=== PATIENT | male | born 1975 | race Caucasian/White ===

== ENCOUNTER 2022-09-18 11:10 | Inpatient (IN) | payer MEDICARE, OTHER ==
[2022-09-18] MEDS ORDERED: MAGNESIUM HYDROXIDE 2,400 MG/30 ML CUP PO PRN (12:43)
[2022-09-18] MEDS ORDERED: LORazepam 1 MG TAB PO PRN (12:43)
[2022-09-18] MEDS ORDERED: LORazepam 2 MG/ML INJ IM PRN (12:43)
[2022-09-18] MEDS ORDERED: MAG HYDROX/AL HYDROX/SIMETH 30 ML CUP PO PRN (12:43)
[2022-09-18] MEDS ORDERED: ACETAMINOPHEN TAB 325 MG TAB PO PRN (12:43)
[2022-09-18] MEDS ORDERED: chlorproMAZINE 25 MG/ML 2 ML AMP IM PRN (13:04)
[2022-09-18] MEDS ORDERED: chlorproMAZINE 25 MG TAB PO PRN (13:04)
[2022-09-18] MEDS ORDERED: OLANZapine 10 MG VIAL IM PRN (14:21)
[2022-09-18] MEDS ORDERED: OLANZapine 5 MG TAB PO PRN (14:21)
[2022-09-18] MEDS: NICOTINE 14MG/24HR PATCH TRANSDERM SCH (14:28)
[2022-09-18] MEDS ORDERED: hydrOXYzine HCL 50 MG/ML 1 ML VIAL IM PRN (14:29)
[2022-09-18] MEDS ORDERED: ASPIRIN 325 MG TAB PO PRN (14:31)
[2022-09-18] MEDS ORDERED: VITAMIN B50 COMPLEX PO SCH (15:00)
[2022-09-18] MEDS: DOCUSATE 100 MG CAP PO SCH (15:39)
[2022-09-18] MEDS: MINOCYCLINE 50 MG CAP PO SCH (16:17)
[2022-09-18] MEDS: FINASTERIDE 5 MG TAB PO SCH (16:17)
[2022-09-18] MEDS: MELATONIN 1 MG TAB PO SCH (21:41)
[2022-09-18] MEDS: QUEtiapine 25 MG TAB PO SCH (21:41)
--- NOTE | 2022-09-18 23:46 | P.CONS ---
History of Present Illness - Reason for Consult Consult date: 09/18/22 - History of Present Illness The patient is a 47-year-old transgender female who was transferred from [facility] with the patient had been admitted to the hospital for psychosis. The patient was subsequently transferred to [facility] unit where she was seen and evaluated. The patient was paranoid and concerned that throughout the last 2 decades, multiple people have been trying to poison her. She reports having "hits" where someone will poison the food that she would buy from the supermarket, which would cause her to become violently ill. She does not know who it is the trying to do this but states that it has happened several times. She does not believe that these are dietary ALLERGIES or intolerances. At time of interview, she reports that her symptoms have been throbbing for the past several weeks. She also reports that her intestines feel numb and she denied tobacco, alcohol, or substance use. She denied extremity chest discomfort or shortness of breath. Denied nausea, vomiting, abdominal pain, diarrhea. She reports using a walker to ambulate after suffering multiple right knee injuries while playing football. Review of systems: Pertinent positives and negatives as discussed in HPI, a complete review of systems was performed and all other systems are negative. Physical examination: General: non toxic, no distress, appears at stated age, normal weight Derm: no unusual rashes/lesions, no unusual ecchymoses, warm, dry Head: atraumatic, normocephalic, symmetric Eyes: EOMI, no lid lag, anicteric sclera ENT: Nose and ears atraumatic, no thrush, no pharyngeal erythema Neck: trachea midline, supple Mouth: no lip lesion, mucus membranes moist Cardiovascular: S1S2 reg, no murmur, no edema Lungs: CTA bilateral, no rhonchi, no rales , no accessory muscle use Abdominal: soft, nontender to palpation, no guarding Ext: no gross muscle atrophy, no contractures, Neuro: No gross focal neuro deficits noted Psych: Alert, oriented, paranoid affect Assessment: Psychosis Aspirin prescribed Plan: Defer management to primary psychiatry service Unknown why the patient is taking aspirin Patient is insisting that all her home medications be renewed no matter what and she reports she is following with multiple providers who are managing these long-term. Thank you for allowing us to participate in the care of this patient. We will follow peripherally. Do not hesitate to contact us with questions. Someone can be reached from the [facility] hospitalist group at all hours of the day at [phone]. Past Medical History Past Medical History: Fibromyalgia, Musculoskeletal Disorder, Osteoarthritis (OA) Additional Past Medical History / Comment(s): Damaged right rhomboid muscle History of Any Multi-Drug Resistant Organisms: None Reported Past Surgical History: Orthopedic Surgery Additional Past Surgical History / Comment(s): Knee sx Past Anesthesia/Blood Transfusion Reactions: No Reported Reaction Past Psychological History: Schizophrenia Smoking Status: Never smoker Medications and Allergies Home Medications Medication Instructions Recorded Confirmed Type Aspirin EC [Ecotrin] 325 mg PO DAILY PRN 09/18/22 09/18/22 History Docusate [Colace] 100 mg PO DAILY 09/18/22 09/18/22 History Finasteride [Proscar] 5 mg PO DAILY 09/18/22 09/18/22 History Melatonin 300 Mcg 300 mcg PO HS 09/18/22 09/18/22 History Minocycline [Minocin] 50 mg PO DAILY 09/18/22 09/18/22 History QUEtiapine XR [SEROquel XR] 150 mg PO HS 09/18/22 09/18/22 History Vitamin B-50 Complex 1 tab PO DAILY 09/18/22 09/18/22 History carBAMazepine CHEW [TEGretol Chew] 100 mg PO BID 09/18/22 09/18/22 History estradioL 4 mg PO BID 09/18/22 09/18/22 History Allergies Allergy/AdvReac Type Severity Reaction Status Date / Time ciprofloxacin Allergy Unknown Verified 09/18/22 15:08 Physical Exam Vitals: Vital Signs Temp Pulse Resp BP Pulse Ox 09/18/22 12:40 98.3 F 116 H 16 137/85 99 Intake and Output 09/18/22 09/18/22 09/19/22 14:59 22:59 06:59 Other: Weight 66.2 kg
[2022-09-19 09:21] LABS: Chol/HDL Ratio 1.95 Ratio; LDL Cholesterol,Calculated 73.3 mg/dL (0.0-131.0); VLDL Calculation 17.18 mg/dL (5.00-40.00)
[2022-09-19] MEDS: NICOTINE 14MG/24HR PATCH TRANSDERM SCH (09:49)
[2022-09-19] MEDS: MINOCYCLINE 50 MG CAP PO SCH (10:22)
[2022-09-19] MEDS: ESTRADIOL 2 MG PO SCH ×2 (10:22→22:08)
[2022-09-19] MEDS: FINASTERIDE 5 MG TAB PO SCH (10:22)
[2022-09-19] MEDS: DOCUSATE 100 MG CAP PO SCH (10:23)
[2022-09-19] MEDS: QUEtiapine 25 MG TAB PO SCH ×2 (10:23→13:27)
[2022-09-19 10:47] VITALS: BMI 22.8
--- NOTE | 2022-09-19 12:51 | P.HP ---
Psychiatric H&P - . H&P Date: 09/19/22 History & Physical: Allergies Allergy/AdvReac Type Severity Reaction Status Date / Time ciprofloxacin Allergy Unknown Verified 09/18/22 15:08 Vital Signs Temp 98.3 F 09/18/22 12:40 Pulse 116 H 09/18/22 12:40 Resp 16 09/18/22 12:40 BP 137/85 09/18/22 12:40 Pulse Ox 99 09/18/22 12:40 FiO2 Intake & Output 09/18/22 09/19/22 09/19/22 18:59 06:59 18:59 Weight 66.2 kg 66.2 kg Laboratory Last Values Estimated Ave Glu mg/dL 97 mg/dL 09/19/22 06:45 Hemoglobin A1c 5.0 % (<=6.0) 09/19/22 06:45 Triglycerides 85.90 mg/dL (0.00-149.00) 09/19/22 06:45 Cholesterol 186.00 mg/dL (0.00-200.00) 09/19/22 06:45 LDL Cholesterol, Calc 73.3 mg/dL (0.0-131.0) 09/19/22 06:45 VLDL Cholesterol, Calc 17.18 mg/dL (5.00-40.00) 09/19/22 06:45 HDL Cholesterol 95.50 mg/dL (40.00-60.00) H 09/19/22 06:45 Cholesterol/HDL Ratio 1.95 Ratio 09/19/22 06:45 09/19/22 12:44 IDENTIFYING DATA: Patient is a 47-year-old transgender male to female who currently lives with her parents and also alone at times, currently on disability HPI: Patient presented to the hospital as a transfer from [facility]. Patient was on a petition and certificate. The petition was filled out by student officer that stated the patient was making threats towards a service order dispatcher chief and acting bizarre and psychotic. Patient was seen today for evaluation by property underwriter in the office. Patient had a shaved head, was transgender and using a walker. Patient was fairly constricted, concrete and very particular about her medications. She states that "if you don't touch her medications and I'll be okay". She continued to focus on needing to be on these particular medications. States that she has been taking them religiously. She states she was getting targeted for being transferred. States that she was getting threats. He was rambling at times and difficult to redirect during conversation. Spoke about eating salsa and getting sick for about 7 days. States that she also believes that her [id number] was putting chemicals on her bathroom counter and she was ingesting it. She states that he was also likely poisoned. Claims that she tasted ketchup and it tasted like bleach. She was speaking of making threats towards the service order dispatcher chief however did not explain fully why she was doing that, she was endorsing paranoia at home and also on the unit. Claims that her sleep and appetite are fair. Patient denies any current suicidal or homicidal ideations intent or plan. At this time patient denies any auditory or visual hallucinations. Patient denies any flight of ideas racing thoughts and increased in goal directed behavior. Patient admits to using now recreational drugs or cigarettes PAST PSYCHIATRIC HISTORY: Patient states that she has history of schizophrenia and possibly bipolar disorder. Patient is currently on several different medications including lithium, melatonin, Seroquel. She also takes Tegretol. Patient states that she has been admitted several times to psychiatric hospitals including [place] most recently over does not remember when. She claims that she does not want to follow up with a psychiatrist however does have a psychologist/therapist that she sees. [Patient denies any history of suicide attempts in the past.] Past Medical History: Fibromyalgia, Musculoskeletal Disorder, Osteoarthritis (OA) Additional Past Medical History / Comment(s): Damaged right rhomboid muscle History of Any Multi-Drug Resistant Organisms: None Reported Past Surgical History: Orthopedic Surgery Additional Past Surgical History / Comment(s): Knee sx Past Anesthesia/Blood Transfusion Reactions: No Reported Reaction Past Psychological History: Schizophrenia Smoking Status: Never smoker ALLERGIES: as per EMR CHEMICAL DEPENDENCY HISTORY: as per HPI FAMILY PSYCHIATRIC/SUBSTANCE USE HISTORY: Claims that her grandfather had schizophrenia and possibly bipolar SOCIAL HISTORY: Patient was born and raised in [facility]. She states that she completed high school and did 2 in mathematics and also in computer information technology. Claims that she has no legal history, currently lives with her parents and also has her own place. Currently disabled. MENTAL STATUS EXAM: General Appearance: Patient appears to be and has a shaved head, wearing glasses, transgender, stated age is alert, difficult to redirect, concrete. Patient appears to have fair hygiene and grooming. Behavior: Patient is seated without any agitated behavior. Difficult to redirect. Endorsing paranoia. Speech: Patient's speech is [fluent and nonpressured.]Monotone and concrete Mood/Affect: Patient reports their mood is [a bit better now], affect is congruent and constricted. Suicidality/Homicidality: Patient denies having any homicidal ideation intent or plan. [Denies any suicidal ideations intent or plan] Perceptions: Patient denies any visual hallucinations [and denies any auditory hallucinations] Though content/process: [There is no evidence of any delusional thought content and thought process is linear and goal-directed.] [place], endorsing paranoia. Memory and concentration: AOX3, grossly intact for the purposes of this session. Can spell "WORLD" backwards Judgment and insight: [poor] STRENGTHS/WEAKNESSES: strength is that patient is [resilient]. Weakness is that patient [has poor judgment and is impulsive] INTELLECT: [average] IMPRESSIONS: []Schizophrenia Rule out autism spectrum disorder PLAN: -Patient is admitted under [voluntary] status to MHU for stabilization of psychiatric symptoms and safety. Patient has signed [adult voluntary form and] [medication consent] and is placed in patient's chart. -Medications : Will start patient on lithium 150 mg twice a day for mood stabilization/anxiety, Seroquel 25 mg daily +125 mg daily at bedtime for sleep/mood stabilization/psychosis, Tegretol resume 150 mg bid -vistaril and zyprexa PRN for agitation/aggression -Patient was informed of the risks, benefits and side effects of the medication and patient verbally consented to taking the medications. Patient signed med consent form and was placed in chart. -Internal Medicine consult to perform medical evaluation and physical. -NRT - not needed as patient does not smoke -SW on board for discharge planning. Encourage patient to participate in groups to work on coping skills. 09/19/22 12:51
[2022-09-19] MEDS: LITHIUM CARBONATE 150 MG CAP PO SCH ×2 (13:27→22:09)
[2022-09-19] MEDS ORDERED: QUEtiapine 25 MG TAB PO SCH (21:00)
[2022-09-19] MEDS ORDERED: QUEtiapine 100 MG TAB PO SCH (21:00)
[2022-09-19] MEDS: MELATONIN 1 MG TAB PO SCH (22:10)
[2022-09-20] MEDS: LITHIUM CARBONATE 150 MG CAP PO SCH (09:13)
[2022-09-20] MEDS: MINOCYCLINE 50 MG CAP PO SCH (09:13)
[2022-09-20] MEDS: DOCUSATE 100 MG CAP PO SCH (09:13)
[2022-09-20] MEDS: FINASTERIDE 5 MG TAB PO SCH (09:13)
[2022-09-20] MEDS: QUEtiapine 25 MG TAB PO SCH (09:13)
[2022-09-20] MEDS: ESTRADIOL 2 MG PO SCH ×2 (09:14→21:11)
[2022-09-20] MEDS ORDERED: QUEtiapine 25 MG TAB PO STA (13:42)
--- NOTE | 2022-09-20 13:56 | P.PN ---
Progress Note - Text Progress Note Date: 09/20/22 Interval History: Patient was seen wandering the hallways and was directable and agreeable to sp gianfranco with underwriter mortgage loan in the office. She continues to be using a walker. Continues to ramble and is tangential, loose associations. She spoke about being persecuted on the unit due to being transgender. She spoke in detail about another patient that his "faking being autistic" and also another patient that was hearing voices that she didnt believe is happening. she continues to be fairly constricted and concrete, argumentative about her medications but is agreeable to some changes. states that she slept well last night. At this time patient denies any suicidal or homical ideations, intent or plan. Patient denies any auditory, visual hallucinations. Patient denies any side effects from the medications and has been compliant with meds. Mental Status Exam: General Appearance: Patient appears to be and has a shaved head, wearing glasses, transgender, stated age is alert, difficult to redirect, concrete. Patient appears to have fair hygiene and grooming. Behavior: Patient is seated without any agitated behavior. Difficult to redirect. Endorsing paranoia. Speech: Patient's speech is fluent and nonpressured.Monotone and concrete Mood/Affect: Patient reports their mood is a bit better, affect is congruent and constricted. Suicidality/Homicidality: Patient denies having any homicidal ideation intent or plan. Denies any suicidal ideations intent or plan Perceptions: Patient denies any visual hallucinations and denies any auditory hallucinations Though content/process: [place], rambling, tangential. Memory and concentration: AOX3, grossly intact for the purposes of this session. Judgment and insight: poor IMPRESSIONS: Schizophrenia Rule out autism spectrum disorder PLAN: -Patient is admitted under voluntary status to MHU for stabilization of psychiatric symptoms and safety. Patient has signed adult voluntary form and medication consent and is placed in patient's chart. -Medications : increase lithium 300 mg twice a day for mood stabilization/anxiety, increase Seroquel 50 mg daily + 125 mg daily at bedtime for sleep/mood stabilization/psychosis, Tegretol resume 150 mg bid, patient is not willing to decvrease or d/c it. -vistaril and zyprexa PRN for agitation/aggression -NRT - not needed as patient does not smoke -SW on board for discharge planning. Encourage patient to participate in groups to work on coping skills. possible discharge wednesday vs wed back home if patient improves.
[2022-09-20] MEDS ORDERED: QUEtiapine 100 MG TAB PO SCH (21:00)
[2022-09-20] MEDS ORDERED: QUEtiapine 25 MG TAB PO SCH (21:00)
[2022-09-20] MEDS: MELATONIN 1 MG TAB PO SCH (21:11)
[2022-09-20] MEDS: LITHIUM CARBONATE 300 MG CAP PO SCH (21:11)
[2022-09-21] MEDS: LITHIUM CARBONATE 300 MG CAP PO SCH ×2 (08:44→20:05)
[2022-09-21] MEDS: DOCUSATE 100 MG CAP PO SCH (08:44)
[2022-09-21] MEDS: MINOCYCLINE 50 MG CAP PO SCH (08:44)
[2022-09-21] MEDS: FINASTERIDE 5 MG TAB PO SCH (08:44)
[2022-09-21] MEDS ORDERED: QUEtiapine 50 MG TAB PO SCH (09:00)
--- NOTE | 2022-09-21 10:28 | P.PN ---
Progress Note - Text Progress Note Date: 09/21/22 Interval History: Patient was seen sitting at the side of her bed today, she placed a book under neath the door to the blocks the entry. She claims that she is very upset with the procedure writer today and states that "I don't want to talk to you". She began rambling and accused other patient of "sexual harassment" and was tangential, loose in associations and endorsing multiple delusions. She spoke negatively about another patient who is across the hallway and states that she is "trying to talk to God". Patient verbalized several racist profanities to procedure writer and demanded to be discharged. showing poor impulse control, unstable mood and agitation. she appears to be more hostile today. She continues to be using a walker. Continues to ramble and is tangential, loose associations. argumentative about her medications but is agreeable to some changes. states that she slept well last night. At this time patient denies any suicidal or homical ideations, intent or plan. Patient denies any visual hallucinations. Claiming that she hears voices. Patient denies any side effects from the medications and has been compliant with meds. Mental Status Exam: General Appearance: Patient appears to be and has a shaved head, wearing glasses, transgender, stated age is alert, difficult to redirect, rambling and hostile. Patient appears to have fair hygiene and grooming. Behavior: Patient is seated without any agitated behavior. Difficult to redirect. Endorsing paranoia. Bizarre. Hostile Speech: Patient's speech is rambling, hyperverbal.Monotone and concrete Mood/Affect: Patient reports their mood "not okay", affect is congruent Suicidality/Homicidality: Patient denies having any homicidal ideation intent or plan. Denies any suicidal ideations intent or plan Perceptions: Patient denies any visual hallucinations and denies any auditory hallucinations Though content/process: [place], rambling, tangential. Memory and concentration: AOX3, grossly intact for the purposes of this session. Judgment and insight: poor, impulsive. IMPRESSIONS: Schizophrenia Rule out autism spectrum disorder PLAN: -Patient is admitted under voluntary status to MHU for stabilization of psychiatric symptoms and safety. Patient has signed adult voluntary form and medication consent and is placed in patient's chart. -Medications : Continue lithium 300 mg twice a day for mood stabilization/anxiety, discontinue Seroquel due to ineffectiveness and replace with prolixin PO 5 mg bid for sleep/mood stabilization/psychosis, d/c Tegretol. if patient is refusing medications then will proceed with involuntary process. -vistaril and zyprexa PRN for agitation/aggression -NRT - not needed as patient does not smoke -SW on board for discharge planning. Encourage patient to participate in groups to work on coping skills. patient is worsening psychiatrically and possibly will need to be petitioned and certed.
[2022-09-21] MEDS ORDERED: flUPHENAZine 2.5 MG/ML (MDV) 10 ML VIAL IM PRN (11:16)
[2022-09-21] MEDS ORDERED: LORazepam 2 MG/ML INJ IM PRN ×2 (11:17→12:51)
[2022-09-21] MEDS ORDERED: LORazepam 1 MG TAB PO PRN (11:17)
[2022-09-21] MEDS ORDERED: diphenhydrAMINE 50 MG/ML 1 ML VIAL IM PRN (12:52)
[2022-09-21] MEDS: MELATONIN 1 MG TAB PO SCH (20:05)
[2022-09-22] MEDS: LITHIUM CARBONATE 300 MG CAP PO SCH ×2 (08:17→20:32)
[2022-09-22] MEDS: DOCUSATE 100 MG CAP PO SCH (08:17)
[2022-09-22] MEDS: FINASTERIDE 5 MG TAB PO SCH (08:18)
[2022-09-22] MEDS: MINOCYCLINE 50 MG CAP PO SCH (08:18)
--- NOTE | 2022-09-22 11:30 | P.PN ---
Progress Note - Text Progress Note Date: 09/22/22 Interval History: Patient was seen sitting at the side of her bed today, was directed away from the group to speak with pattern chart writer. She claims that she is not doing well today. Continues to ramble, hyperverbal, loose associations. Continues to make several loosely formed delusional statements about other patients. Continues to state that she is being discriminated against. Was very focused on her medications and continues to be fairly concrete about them and wants to be restarted on "my 5 medications". Clinical Appeals Specialist discussed the rationale for the medication change due to the fact that he was not helping patient and patient began arguing with pattern chart writer. Clinical Appeals Specialist spoke about the legal process and involuntary process. she did make statements that she wants to hurt/harm pattern chart writer "for changing my meds". very poor insight and judgment. states that she slept poorly last night. At this time patient denies any suicidal, intent or plan. Patient denies any visual hallucinations. Claiming that she hears voices. Patient denies any side effects from the medications and has been compliant with meds. patient received PRN Ativan and PRolixin yesterday due to aggression, psychosis, not being redirectable and not threatning to harm staff and pattern chart writer. Mental Status Exam: General Appearance: Patient appears to be and has a shaved head, wearing glasses, transgender, stated age is alert, difficult to redirect, rambling and hostile. Patient appears to have fair hygiene and grooming. Behavior: Patient is seated without any agitated behavior. Difficult to redirect. Endorsing paranoia. Bizarre. less Hostile Speech: Patient's speech is rambling, hyperverbal. Monotone and concrete Mood/Affect: Patient reports their mood "not good", affect is congruent and constricted Suicidality/Homicidality: Patient denies having any suicidal ideations intent or plan. admits to HI towards pattern chart writer, no plan. Perceptions: Patient denies any visual hallucinations and denies any auditory hallucinations Though content/process: [place], rambling, tangential. loose associations. paranoia. Memory and concentration: AOX3, grossly intact for the purposes of this session. Judgment and insight: poor, impulsive. IMPRESSIONS: Schizophrenia Rule out autism spectrum disorder PLAN: -Patient is admitted under involuntary status to MHU for stabilization of psychiatric symptoms and safety. Patient has signed medication consent and is placed in patient's chart. awaiting court and deferral date -Medications : Continue lithium 300 mg twice a day for mood stabilization/anxiety, continue prolixin PO 5 mg bid for sleep/mood stabilization/psychosis. patient has been refusing prolixin at this time. -benadryl, prolixin and ativan PRN for agitation/aggression -NRT - not needed as patient does not smoke -SW on board for discharge planning. Encourage patient to participate in groups to work on coping skills. completed two certs and petition yesterday and filed for involuntary, awaiting deferral and court date.
[2022-09-22] MEDS ORDERED: BENZTROPINE MESYLATE 1 MG TAB PO PRN (13:47)
[2022-09-22] MEDS: hydrOXYzine pamoate 25 MG CAP PO PRN (14:51)
[2022-09-22] MEDS: MELATONIN 1 MG TAB PO SCH (20:32)
[2022-09-23] MEDS: DOCUSATE 100 MG CAP PO SCH (08:19)
[2022-09-23] MEDS: FINASTERIDE 5 MG TAB PO SCH (08:20)
[2022-09-23] MEDS: MINOCYCLINE 50 MG CAP PO SCH (08:20)
[2022-09-23] MEDS: LITHIUM CARBONATE 300 MG CAP PO SCH (08:21)
--- NOTE | 2022-09-23 10:19 | P.PN ---
Progress Note - Text Progress Note Date: 09/23/22 Interval History: Patient was seen sitting in on group today and was agreeable to seek to film writer. She claims that she is doing better today. Claims that she feels that she has a bad reaction to lithium and claims that she was having some muscle spasms and "shooting pain down my back". Claims that she does not want take it any longer. States that she is taking the Prolixin and started the first dose last night. Claims that it has been helping her with anxiety and also mood. She was not e ndorsing any delusions today, more focused and more cooperative as well. She continues to be fairly concrete and fairly focused on medications. She was requesting to have her walker given back. States that she had a difficult time sleeping last night. We spoke about other medications that are more appropriate for sleep including trazodone and patient was agreeable to try it tonight. States that her appetite is fair. At this time patient denies any suicidal or homicidal, intent or plan. Patient denies any visual hallucinations. Claiming that she hears voices are but this is improving. Patient denies any side effects from the medications and has been compliant with meds. Mental Status Exam: General Appearance: Patient appears to be and has a shaved head, wearing glasses, transgender, stated age is alert, more directable. Patient appears to have fair hygiene and grooming. Behavior: Patient is seated without any agitated behavior. more directable. no paranoia. more cooperative Speech: Patient's speech is rambling, improving. Monotone and concrete Mood/Affect: Patient reports their mood "a bit better", affect is congruent and constricted Suicidality/Homicidality: Patient denies having any suicidal ideations intent or plan. Denies any HI, no plan. Perceptions: Patient denies any visual hallucinations and denies any auditory hallucinations Though content/process: [place], rambling, more organized, not endorsing paranoia and less focused on delusions today Memory and concentration: AOX3, grossly intact for the purposes of this session. Judgment and insight: improving IMPRESSIONS: Schizophrenia Rule out autism spectrum disorder PLAN: -Patient is admitted under involuntary status to MHU for stabilization of psychiatric symptoms and safety. Patient has signed medication consent and is placed in patient's chart. awaiting court and deferral date -Medications : Discontinue lithium due to intolerance, continue prolixin PO 5 mg bid for sleep/mood stabilization/psychosis. melatonin 1 mg qhs for sleep. added trazodone 50 mg qhs for insomnia. -benadryl, prolixin and ativan PRN for agitation/aggression -NRT - not needed as patient does not smoke -SW on board for discharge planning. Encourage patient to participate in groups to work on coping skills. awaiting deferral with senior attorney and court date set for September 28.
[2022-09-23] MEDS: MELATONIN 1 MG TAB PO SCH (20:44)
[2022-09-23] MEDS ORDERED: traZODone HCL 50 MG TAB PO SCH (21:00)
[2022-09-24] MEDS: hydrOXYzine pamoate 25 MG CAP PO PRN (02:50)
[2022-09-24] MEDS: MINOCYCLINE 50 MG CAP PO SCH (08:15)
[2022-09-24] MEDS: DOCUSATE 100 MG CAP PO SCH (08:15)
[2022-09-24] MEDS: FINASTERIDE 5 MG TAB PO SCH (08:15)
[2022-09-24] MEDS ORDERED: traZODone HCL 50 MG TAB PO PRN (10:16)
--- NOTE | 2022-09-24 10:21 | P.PN ---
Progress Note - Text Progress Note Date: 09/24/22 Interval History: Patient was seen sitting in on group today and was agreeable to seek to bond underwriter. Patient appeared to be much calmer today and more appropriate and directable. She states that she is doing a bit better since yesterday. She did speak about previously being diagnosed with a "delusional disorder" however states that she is not having any paranoia and not endorsing delusions at this time. She thanked bond underwriter for taking her off of the Tegretol and believes that the Prolixin has been helping. States that last night she had a difficult time sleeping and slept about 4 hours with the trazodone and awoken and then had to take the Vistaril afterwards and still did not get the best sleep. We spoke about increasing the dose of trazodone for tonight and patient was okay with it. She has been going to groups. States that her appetite is fair. At this time patient denies any suicidal or homicidal, intent or plan. Patient denies any visual hallucinations. Claiming that she hears voices, these are chronic and are improving. Patient denies any side effects from the medications and has been compliant with meds. Mental Status Exam: General Appearance: Patient appears to be and has a shaved head, wearing glasses, transgender, stated age is alert, more directable. Patient appears to have fair hygiene and grooming. Behavior: Patient is seated without any agitated behavior. more directable. no paranoia. more cooperative Speech: Patient's speech is rambling, improving. Monotone and concrete, improving mildly Mood/Affect: Patient reports their mood "better", affect is congruent and constricted Suicidality/Homicidality: Patient denies having any suicidal ideations intent or plan. Denies any HI, no plan. Perceptions: Patient denies any visual hallucinations and denies any auditory hallucinations Though content/process: [place], rambling, more organized, not endorsing paranoia. Memory and concentration: AOX3, grossly intact for the purposes of this session. Judgment and insight: improving IMPRESSIONS: Schizophrenia Rule out autism spectrum disorder PLAN: -Patient is admitted under involuntary status to [facility] for stabilization of psychiatric symptoms and safety. Patient has signed medication consent and is placed in patient's chart. awaiting court and deferral date -Medications : continue prolixin PO 5 mg bid for sleep/mood stabilization/psychosis. melatonin 1 mg qhs for sleep. increased trazodone to 150 mg qhs scheduled with the additional 50 mg qhs prn for insomnia IF needed. -benadryl, prolixin and ativan PRN for agitation/aggression -NRT - not needed as patient does not smoke -SW on board for discharge planning. Encourage patient to participate in groups to work on coping skills. patient deferred with her state's attorney and is agreeable to continue on with treatment. SW to call parents and try and arrange for possible d/c tomorrow vs wednesday
[2022-09-24] MEDS ORDERED: traZODone HCL 50 MG TAB PO SCH (21:00)
[2022-09-24] MEDS ORDERED: traZODone HCL 100 MG TAB PO SCH (21:00)
[2022-09-24] MEDS: MELATONIN 1 MG TAB PO SCH (21:35)
[2022-09-25 05:58] VITALS: BP 115/73; PULSE 76; RESP 18; TEMP 97.8
[2022-09-25] MEDS: MINOCYCLINE 50 MG CAP PO SCH (08:38)
[2022-09-25] MEDS: FINASTERIDE 5 MG TAB PO SCH (08:38)
[2022-09-25] MEDS: DOCUSATE 100 MG CAP PO SCH (08:38)
--- NOTE | 2022-09-25 10:39 | P.DS ---
Providers Date of admission: 09/18/22 12:28 Expected date of discharge: 09/25/22 Attending physician: Conner Cerrato MD Consults: 09/18/22 13:00 Consult Physician Routine Consulting Provider: Lily Renee Consult Reason/Comments: history and physical/medical management Do you want consulting provider notified?: Yes Primary care physician: Stated None - Discharge Diagnosis(es) (1) Schizophrenia Current Visit: Yes Status: Acute Priority: High Hospital Course: Admission HPI: Admission note was completed by typewriter operator automatic "Patient is a 47-year-old transgender male to female who currently lives with her parents and also alone at times, currently on disability. Patient presented to the hospital as a transfer from [facility]. Patient was on a petition and certificate. The petition was filled out by security control room officer that stated the patient was making threats towards a transit police officer and acting bizarre and psychotic. Patient was seen today for evaluation by typewriter operator automatic in the office. Patient had a shaved head, was transgender and using a walker. Patient was fairly constricted, concrete and very particular about her medications. She states that "if you don't touch her medications and I'll be okay". She continued to focus on needing to be on these particular medications. States that she has been taking them religiously. She states she was getting targeted for being transferred. States that she was getting threats. He was rambl ing at times and difficult to redirect during conversation. Spoke about eating salsa and getting sick for about 7 days. States that she also believes that her [id number] was putting chemicals on her bathroom counter and she was ingesting it. She states that he was also likely poisoned. Claims that she tasted ketchup and it tasted like bleach. She was speaking of making threats towards the transit police officer however did not explain fully why she was doing that, she was endorsing paranoia at home and also on the unit. Claims that her sleep and appetite are fair. Patient denies any current suicidal or homicidal ideations intent or plan. At this time patient denies any auditory or visual hallucinations. Patient denies any flight of ideas racing thoughts and increased in goal directed behavior. Patient admits to using now recreational drugs or cigarettes" Hospital course: Upon admission to the unit patient was admitted initially voluntarily however patient was refusing medications and treatment and the involuntary process was started and completed a petition and two certificates was completed and faxed with the courts. Patient ended up signing a deferral with the deputy attorney general and agreeing to treatment. Patient was initially bizarre, delusional, aggressive, hostile however with time and treatment she got along well with other patients on the unit and followed unit protocol. Patient was compliant with the medications and denied any side effects throughout hospital course. Patient was started on Prolixin by mouth 5 mg twice a day for mood stabilization/psychosis, melatonin 1 mg daily at bedtime for sleep, trazodone was increased to a dose of 150 mg daily at bedtime for sleep/mood, Vistaril when necessary for anxiety. Patient spoke of his stressors and engaged in therapy both group and individual. Patient was also seen by medical team for history and physical exam. Throughout the course of the hospitalization patient gradually improved with regards to mood, anxiety, delusions, hallucinations, sleep and returned back to their baseline level of functioning. On the day of discharge patient denied any suicidal or homicidal ideations intent or plan denied any auditory or visual hallucinations. Patient endorsed wanting to live for her future and health. The patient denied any access to guns or weapons. Patient denied any paranoia and did not endorse any delusions. Patient does not have a significant history of substance abuse and was counseled on abstaining from all substances including alcohol and marijuana. Patient was also counseled on the medications and need for regular compliance and was encouraged to follow-up with their outpatient appointment for mental health and also for primary care. Prior to discharge a family meeting will be arranged by social science professor to answer any questions and ensure safety upon discharge. Mental status exam: General Appearance: Patient appears to be thin, shaved head, wearing glasses and using a wealker, stated age is alert, pleasant, and cooperative. Patient is in no acute distress and has improved hygiene and grooming Behavior: Patient is calmly seated without any agitated behavior. Speech: Patient's speech is fluent and nonpressured. Mood/Affect: Patient reports their mood is "better", affect is congruent Suicidality/Homicidality: Patient denies having any suicidal or homicidal ideation intent or plan. Perceptions: Patient denies any auditory or visual hallucinations. Though content/process: There is no evidence of any delusional thought content and thought process is linear and goal-directed. concrete. Memory and concentration: AOX3, grossly intact for the purposes of this session. Can spell "WORLD" backwards correctly. Judgment and insight: chronically poor, however has improved with guarded prognosis Impression: Schizophrenia Rule out autism spectrum disorder Plan: -Continue with discharge today as patient has improved and stabilized psychiatrically and is not currently an imminent threat to herself and/or others. Patient will remain at chronically elevated risk for harm to self and/or others due to her impulsivity. -Continue medications: Prolixin by mouth 5 mg twice a day for mood stabilization/psychosis, low tone and 300 g daily at bedtime for sleep, trazodone 150 mg daily at bedtime for sleep/mood, Vistaril 50 mg daily when necessary for anxiety. -Patient was counseled on the need for medication compliance and appropriate follow-up at mental health and also primary care for medical issues. Patient verbalized understanding and agreed. -Social work to arrange for and conduct family meeting to ensure safety upon discharge and answer any questions/concerns. Social work also to arrange for patients follow up appointments for psychiatric care along with follow up with primary care provider. -Patient counseled on abstaining from recreational drugs and marijuana and alcohol. Was informed/educated on the adverse effects on their physical and mental health. Patient verbally agreed and understood. -Patient was instructed to return to the hospital or seek immediate medical care if their psychiatric or medical symptoms do worsen or reoccur. Allergies Allergy/AdvReac Type Severity Reaction Status Date / Time ciprofloxacin Allergy Unknown Verified 09/18/22 15:[address] Glu mg/dL 97 mg/dL 09/19/22 06:45 Hemoglobin A1c 5.0 % (<=6.0) 09/19/22 06:45 Triglycerides 85.90 mg/dL (0.00-149.00) 09/19/22 06:45 Cholesterol 186.00 mg/dL (0.00-200.00) 09/19/22 06:45 LDL Cholesterol, Calc 73.3 mg/dL (0.0-131.0) 09/19/22 06:45 VLDL Cholesterol, Calc 17.18 mg/dL (5.00-40.00) 09/19/22 06:45 HDL Cholesterol 95.50 mg/dL (40.00-60.00) H 09/19/22 06:45 Cholesterol/HDL Ratio 1.95 Ratio 09/19/22 06:45 Vital Signs Temp 97.8 F 09/25/22 05:58 Pulse 76 09/25/22 05:58 Resp 18 09/25/22 05:58 BP 115/73 09/25/22 05:58 Pulse Ox 99 09/25/22 05:58 FiO2 Patient Condition at Discharge: Stable Plan - Discharge Summary Discharge Rx Participant: Yes New Discharge Prescriptions: New fluPHENAZine [Prolixin] 5 mg PO BID 30 Days #60 tab traZODone HCL 150 mg PO HS 30 Days #30 tablet hydrOXYzine pamoate [Vistaril] 50 mg PO DAILY PRN 30 Days #60 cap PRN Reason: Anxiety Continue Docusate [Colace] 100 mg PO DAILY Vitamin B-50 Complex 1 tab PO DAILY estradioL 4 mg PO BID Minocycline [Minocin] 50 mg PO DAILY Melatonin 300 Mcg 300 mcg PO HS Aspirin EC [Ecotrin] 325 mg PO DAILY PRN PRN Reason: Muscle Spasm Finasteride [Proscar] 5 mg PO DAILY Discontinued QUEtiapine XR [SEROquel XR] 150 mg PO HS carBAMazepine CHEW [TEGretol Chew] 100 mg PO BID Discharge Medication List Aspirin EC [Ecotrin] 325 mg PO DAILY PRN 09/18/22 [History] Docusate [Colace] 100 mg PO DAILY 09/18/22 [History] Finasteride [Proscar] 5 mg PO DAILY 09/18/22 [History] Melatonin 300 Mcg 300 mcg PO HS 09/18/22 [History] Minocycline [Minocin] 50 mg PO DAILY 09/18/22 [History] Vitamin B-50 Complex 1 tab PO DAILY 09/18/22 [History] estradioL 4 mg PO BID 09/18/22 [History] fluPHENAZine [Prolixin] 5 mg PO BID 30 Days #60 tab 09/25/22 [Rx] hydrOXYzine pamoate [Vistaril] 50 mg PO DAILY PRN 30 Days #60 cap 09/25/22 [Rx] traZODone HCL 150 mg PO HS 30 Days #30 tablet 09/25/22 [Rx] Follow up Appointment(s)/Referral(s): Family,[facility] & [Other] - 09/28/22 10:00 am (09/28/2022 @ 10:00am with Dr Rainey) Activity/Diet/Wound Care/Special Instructions: Avoid the use of street drugs and alcohol. Take all medications as prescribed. When you are in need of refills on your medications, please contact your medical provider and/or outpatient psychiatrist to have this done. Please go to scheduled outpatient appointments for aftercare treatment. If symptoms return or become worse, call the crisis line at and/or go to the nearest emergency room for evaluation. Discharge Disposition: HOME SELF-CARE
== END 2022-09-25 12:35 | disposition home or self-care (01) | DRG 885 ==
LOC: 3MHU 12:28 → EEVIPCON 12:28 → EDSEX 12:28
PROVIDERS: ADMIT Psychiatry & Neurology Psychiatry; ATTEND Psychiatry & Neurology Psychiatry
DX: F20.9 Schizophrenia, unspecified (principal); R45.851 Suicidal ideations; F41.9 Anxiety disorder, unspecified; F64.9 Gender identity disorder, unspecified; M79.7 Fibromyalgia; M19.90 Unspecified osteoarthritis, unspecified site; Z79.899 Other long term (current) drug therapy; Z79.82 Long term (current) use of aspirin; Z88.1 Allergy status to other antibiotic agents; F29 Unspecified psychosis not due to a substance or known physiological condition
CPT/HCPCS: 80061; 83036